=== PATIENT | female | born 1955 | race African-American/Black ===

== ENCOUNTER 2019-02-22 06:57 | Day surgery (SDC) | payer OTHER ==
[2019-02-22] MEDS ORDERED: DIPRIVAN 10 MG/ML IV ONE (07:28)
--- NOTE | 2019-02-22 07:59 | Anesthesia Consultation ---
Anesthesia Consult and Med Hx Date of service: 02/22/19 - Airway Anesthetic Teeth Evaluation: Good, Crowns ROM Head & Neck: Adequate Mental/Hyoid Distance: Adequate Mallampati Class: Class II Intubation Access Assessment: Good - Pre-Operative Health Status ASA Pre-Surgery Classification: ASA2 Proposed Anesthetic Plan: MAC - Pulmonary Hx Smoking: Yes (1/2 PPD 20YRS) Hx Asthma: No COPD: No Hx Pneumonia: No - Endocrine Hx End Stage Renal Disease: No - Hematic Hx Anemia: Yes (Required blood transfusions) - Other Systems Hx Alcohol Use: No Hx Substance Use: No
--- NOTE | 2019-02-22 07:59 | Anesthesia Day of Surgery ---
Anesthesia Day of Surgery - Day of Surgery Patient Examined: Yes Patient H&P Reviewed: Yes Patient is NPO: Yes
[2019-02-22] MEDS ORDERED: NACL 0.9% 1000 ML 1,000 ML IV SCH (08:00)
[2019-02-22] MEDS ORDERED: INFANTS' GAS RELIEF PO ONE (08:30)
--- NOTE | 2019-02-22 08:43 | Procedure Note ---
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 Advice patient to avoid smoking and to check CBC. Follow up in the office in 1 to 2 weeks ([phone]).)
[2019-02-22 09:06] LABS: Basophils # (Auto) 0.1 K/mm3 (0.0-0.1); Basophils % (Auto) 1.3 % (0.0-1.8); Eosinophils # (Auto) 0.2 K/mm3 (0.0-0.4); Eosinophils % (Auto) 2.8 % (0.0-4.3); Hematocrit 33.1 % (30.3-42.9); Hemoglobin 10.5 gm/dl (10.1-14.3); Lymphocytes # (Auto) 1.7 K/mm3 (1.2-5.4); Lymphocytes % (Auto) 23.6 % (13.4-35.0); Mean Corpuscular HGB Conc 32 % (30-34); Mean Corpuscular Volume 84 fl (79-97); Monocytes # (Auto) 0.5 K/mm3 (0.0-0.8); Monocytes % (Auto) 6.8 % (0.0-7.3); Platelet Count 253 K/mm3 (140-440); Red Blood Count 3.92 M/mm3 (3.65-5.03)
[2019-02-22 09:15] LABS: Red Cell Distribution Width 20.3 % (13.2-15.2)
[2019-02-22 09:30] VITALS: BP 119/71
--- NOTE | 2019-02-22 14:10 | Operative Report ---
PROCEDURE: EGD with use of the APC laser. INDICATIONS: This is a 64-year-old female originally from [place] who has anemia secondary to bleeding from multiple large gastric AVMs that have periodically been treated with APC laser over several years. She recently had anemia requiring blood transfusion, last treatment with APC laser was about 2 years ago. DESCRIPTION OF PROCEDURE: EGD was done after getting informed consent with MAC anesthesia. Instrument was passed through the hypopharynx into the esophagus. Esophagus showed normal mucosa throughout its entirety. The stomach showed multiple large gastric AVMs, mainly in the proximal stomach. The AVMs that were in the distal stomach have since been treated over several years and they were not that many at the present time. The pylorus is patent. There was a solitary small AVM noted in the duodenum. The scope was brought back to the proximal stomach. The largest AVMs were then burnt using the APC laser, several were burnt. There was bleeding from the treatment sites and this was washed with copious amounts of water. ASSESSMENT: History of anemia secondary to bleeding from gastric AVMs, which were multiple enlarged and several were treated with APC laser spray, especially in the proximal stomach. There was some bleeding associated with the treatment. No additional complications were noted. PLAN: Plan is to check for CBC. Monitor the patient's H and H, possibly give the patient blood transfusion if the hemoglobin is less than 7. Have the patient follow up in the office in 1-2 weeks' time and advised the patient to refrain from smoking as well as use of aspirin and aspirin-related products. The patient is a smoker and has been advised over several years to stop smoking, which she has not done so. RN, Clau Lorenzo was in the room throughout the entirety of the procedure. JOB# [id number] KRISTINE/BRAEDEN
== END 2019-02-22 06:58 | disposition home or self-care (01) ==
LOC: GIO 06:57
DX: D64.9 Anemia, unspecified (principal); Q27.33 Arteriovenous malformation of digestive system vessel; K92.2 Gastrointestinal hemorrhage, unspecified; F17.210 Nicotine dependence, cigarettes, uncomplicated; Z98.890 Other specified postprocedural states; Z79.899 Other long term (current) drug therapy
CPT/HCPCS: 36415; 43270; 85025; J2704; J7030

== ENCOUNTER 2020-06-16 08:00 | Day surgery (SDC) | payer OTHER ==
[2020-06-16] MEDS ORDERED: WATER FOR IRRIG STERILE 250 ML BOTTLE IR ONE (08:04)
[2020-06-16] MEDS ORDERED: SODIUM CHLORIDE 0.9% 1000 ML 1,000 ML IV SCH (08:45)
--- NOTE | 2020-06-16 08:50 | Anesthesia Day of Surgery ---
Anesthesia Day of Surgery - Day of Surgery Patient Examined: Yes Patient H&P Reviewed: Yes Patient is NPO: Yes
--- NOTE | 2020-06-16 08:50 | Anesthesia Consultation ---
Anesthesia Consult and Med Hx Date of service: 06/16/20 - Airway Anesthetic Teeth Evaluation: Good ROM Head & Neck: Adequate Mental/Hyoid Distance: Adequate Mallampati Class: Class I Intubation Access Assessment: Good - Pulmonary Exam CTA: Yes - Cardiac Exam Cardiac Exam: RRR - Pre-Operative Health Status ASA Pre-Surgery Classification: ASA2 Proposed Anesthetic Plan: MAC - Pulmonary Hx Smoking: Yes (1/2 PPD 20YRS) Hx Respiratory Symptoms: No - Cardiovascular System Hx Hypertension: No Hx Heart Attack/AMI: No Hx Percutaneous Transluminal Coronary Angioplasty (PTCA): No Hx Cardia Arrhythmia: No - Central Nervous System CVA: No - Endocrine Hx Renal Disease: No Hx Liver Disease: No Hx Insulin Dependent Diabetes: No Hx Non-Insulin Dependent Diabetes: No Hx Thyroid Disease: No - Other Systems Hx Obesity: No - Additional Comments Anesthesia Medical History Comments: No hx anesthetic complications.
[2020-06-16] MEDS ORDERED: propofoL 200 MG/20 ML VIAL IV ONE ×2 (08:51→09:47)
--- NOTE | 2020-06-16 10:13 | Procedure Note ---
Date of procedure: 06/16/20 Pre-op diagnosis: Anemia secondary Multiple,Large, Gastric AVms Post-op diagnosis: other (Multiple,Large Gastric AVMs (Burnt using APC laser)) Procedure: EGD with APC laser use (to burn mutiple large, Gastric AVMs Anesthesia: MAC Surgeon: CHRISTOS BARAHONA Estimated blood loss: minimal Pathology: none Specimen disposition: discarded Disposition: same day (Avoid aspirin and NSAID for 2 weeks. Advice patient to avoid smoking. Check H and H (blood transfusion if needed). Follow up in 1 to 2 weeks ([phone]).)
--- NOTE | 2020-06-16 10:19 | Operative Report ---
PROCEDURE: Esophagogastroduodenoscopy with the use of APC laser to burn multiple large gastric AVMs that the patient had. INDICATIONS: The patient is a 65-year-old East female originally from [place] who has a history of developing anemia requiring periodic blood transfusion and iron infusion secondary to large gastric AVMs that she has in her stomach. She has had periodic EGDs with burning of the AVMs using an APC laser. This was again attempted today. DESCRIPTION OF PROCEDURE: The procedure was done after getting informed consent with MAC anesthesia. Instrument was passed through the hypopharynx into the esophagus, which showed normal mucosa of the stomach, especially in the proximal stomach showed multiple large gastric AVMs, the cause of the patient's bleeding and anemia and several of these were burnt using the APC laser. There was some bleeding from this procedure. The lower part of the stomach had a few scattered small AVMs, some of which were also burned. The pylorus was patent. The duodenum in the first and the second portion appeared normal. ASSESSMENT: Anemia secondary to multiple large gastric AVMs that were burned. There did not appear to be any AVMs in the duodenum and the esophagus appeared to be normal. PLAN: To have the patient avoid aspirin and aspirin-related products for the next 2 weeks. To get H and H and if the hemoglobin is low, the patient may require blood transfusion. Continue with present supportive care and treatment. The patient will be asked to follow up in the office in 1-2 weeks' time. JOB# [id number] KRISTINE/BRAEDEN
[2020-06-16 10:31] LABS: Hematocrit 34.6 % (30.3-42.9); Hemoglobin 11.3 gm/dl (10.1-14.3)
[2020-06-16 10:47] VITALS: BP 132/81
--- NOTE | 2020-06-16 11:28 | Post Anesthesia Evaluation ---
- Post Anesthesia Evaluation Patient Participated: Yes Airway Patent: Yes Stable Respiratory Function: Yes Nausea/Vomiting: No Temp > 96.8F: Yes Pain Manageable: Yes Adequeate Hydration: Yes Anesthesia Complications: No
== END 2020-06-16 11:08 | disposition home or self-care (01) ==
LOC: GIO 08:00
DX: D64.9 Anemia, unspecified (principal); Q27.33 Arteriovenous malformation of digestive system vessel; F17.210 Nicotine dependence, cigarettes, uncomplicated; K57.30 Diverticulosis of large intestine without perforation or abscess without bleeding; Z98.890 Other specified postprocedural states; Z86.010 Personal history of colon polyps
CPT/HCPCS: 36415; 43255; 85014; 85018; J2704; J7030

== ENCOUNTER 2021-04-27 09:34 | Day surgery (SDC) | payer OTHER ==
[~2021-04-27 09:34] MED LIST: SODIUM CHLORIDE 0.9% 1000 ML 1,000 ML IV SCH
--- NOTE | 2021-04-27 10:22 | Anesthesia Consultation ---
Anesthesia Consult and Med Hx Date of service: 04/27/21 - Airway Anesthetic Teeth Evaluation: Good, Caps ROM Head & Neck: Adequate Mental/Hyoid Distance: Adequate Mallampati Class: Class II Intubation Access Assessment: Good - Pre-Operative Health Status ASA Pre-Surgery Classification: ASA2 Proposed Anesthetic Plan: MAC - Pulmonary Hx Smoking: Yes (1/2 PPD 20YRS) Hx Asthma: No Hx Respiratory Symptoms: No COPD: No Hx Pneumonia: No - Cardiovascular System Hx Hypertension: No Hx Heart Attack/AMI: No Hx Percutaneous Transluminal Coronary Angioplasty (PTCA): No Hx Cardia Arrhythmia: No - Central Nervous System CVA: No - Endocrine Hx Renal Disease: No Hx End Stage Renal Disease: No Hx Liver Disease: No Hx Insulin Dependent Diabetes: No Hx Non-Insulin Dependent Diabetes: No Hx Thyroid Disease: No - Hematic Hx Anemia: Yes Hx Sickle Cell Disease: No - Other Systems Hx Alcohol Use: No Hx Substance Use: No Hx Obesity: No - Additional Comments Anesthesia Medical History Comments: Here 2019
[2021-04-27] MEDS ORDERED: propofoL 200 MG/20 ML VIAL IV ONE (11:26)
[2021-04-27] MEDS ORDERED: fentaNYL 100 MCG/2 ML INJ ONE (11:27)
[2021-04-27] MEDS ORDERED: ONDANSETRON 4 MG/2 ML INJ ONE (11:48)
[2021-04-27] MEDS ORDERED: LIDOCAINE MPF (2%) 20 MG/1 ML VIAL 5 ML ONE (11:48)
--- NOTE | 2021-04-27 11:59 | Procedure Note ---
Date of procedure: 04/27/21 Pre-op diagnosis: Anemia secondary to GI Bleeding from Multiple large Gastric AVMS Post-op diagnosis: other (Multiple Gastric Avms throughtout the Stomach (largest in the Proximal stomach) treated with APC laer/ Small, two Duodenal AVMs (not treated this time)) Procedure: EGD and APC laser use Anesthesia: MAC Surgeon: CHRISTOS BARAHONA Estimated blood loss: minimal Pathology: none Condition: stable Disposition: same day (Continue with home medication, but avoid a spiin and NSAID and anticoaglants for 5 days. Follow up in 1 to 2 weeks ([phone]).)
--- NOTE | 2021-04-27 12:21 | Anesthesia Day of Surgery ---
Anesthesia Day of Surgery - Day of Surgery Patient Examined: Yes Patient H&P Reviewed: Yes Patient is NPO: Yes
--- NOTE | 2021-04-27 12:21 | Post Anesthesia Evaluation ---
- Post Anesthesia Evaluation Patient Participated: Yes Airway Patent: Yes Stable Respiratory Function: Yes Nausea/Vomiting: No Temp > 96.8F: Yes Pain Manageable: Yes Adequeate Hydration: Yes Anesthesia Complications: No Block Receding Appropriately: Not Applicable Patient on Ventilator: No
--- NOTE | 2021-04-27 12:33 | Operative Report ---
DATE OF SURGERY: 04/27/2021 EGD and the use of an APC laser to burn multiple gastric AVMs. SUMMARY AND INDICATIONS: This is a 66-year-old [place] female originally from [place] who has multiple gastric AVMs some quite large, from which she periodically bleeds and becomes anemic requiring blood transfusion and also iron transfusion from time to time. She has come for EGD when treatment with APC laser. DESCRIPTION OF PROCEDURE: Procedure was done after getting informed consent with MAC anesthesia. The instrument was passed through the hypopharynx into the esophagus, which showed normal mucosa. Stomach showed multiple gastric AVMs, most pronounced in the proximal stomach, some of which were quite large. The pylorus was patent. The duodenum showed 1-2 small duodenal AVMs. Second portion appeared normal. Several of these proximal as well as some of the smaller distal gastric AVMs were burned using the APC laser. There was some bleeding from the burn sites; however, no complications. The patient tolerated the procedure well. ASSESSMENT: Anemia secondary to multiple large gastric AVMs, most pronounced in the proximal stomach, small 1-2 duodenal AVMs that were not treated at this time, use of APC laser to burn multiple large gastric AVMs, both in the proximal as well as the small ones in the distal stomach with minimal bleeding. PLAN: To avoid aspirin and aspirin-related products for the next few days. Continue with present PPI treatment. Advised the patient to refrain from smoking and have the patient follow up in the office in 1-2 weeks' time. Procedure was done in the GI lab with assistance of the GI lab team, which included the GI nurse, optometric technologist and with assistance of anesthesia. TID: [id number] RECEIPT: [id number] KRISTINE/STEFAN
[2021-04-27 13:34] VITALS: BP 135/69
== END 2021-04-27 12:20 | disposition home or self-care (01) ==
LOC: GIO 09:34
DX: D64.9 Anemia, unspecified (principal); K31.89 Other diseases of stomach and duodenum; F17.210 Nicotine dependence, cigarettes, uncomplicated; Z79.899 Other long term (current) drug therapy; Z98.890 Other specified postprocedural states
CPT/HCPCS: 43270; J2405; J2704; J3010; J7030